=== PATIENT | male | born 1985 | race Caucasian/White ===

== ENCOUNTER 2016-12-04 13:19 | Emergency (ER) | payer OTHER ==
--- NOTE | 2016-12-04 15:47 | EDDOCDS ---
Nurse's Notes [facility] Name: Dayday Ferrera Age: 31 yrs Sex: Male : 1985 Arrival Date: 12/04/2016 Time: 13:19 Bed TR7 Private MD: Mathew [facility] Diagnosis: Lumbago with sciatica, right side Presentation: 12/04 13:39 Presenting complaint: Patient states: low back pain today. History of herniated disc kr3 low back. Adult Sepsis Screening: The patient does not have new or worsening altered mentation. Patient's respiratory rate is less than 22. Systolic blood pressure is greater than 100. Patient has a qSOFA score of 0- Negative Sepsis Screen. Suicide/Homicide risk assessment- the patient denies having any suicidal and/or homicidal ideations and does not present with any other emotional, behavioral or mental health complaints. 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 Transition of care: patient was not received from another setting of care. 13:39 Acuity: MISA Level 4 kr3 13:39 Method Of Arrival: Walkin/Carried/Asstd kr3 Triage Assessment: 13:40 General: Appears uncomfortable, Behavior is appropriate for age, cooperative. Pain: kr3 Location: low back area Pain currently is 8 out of 10 on a pain scale. HIV screening NA for this visit Offered previously. Neurological: Level of Consciousness is awake, alert. Respiratory: Respiratory effort is even, unlabored. Derm: Skin is normal. Historical: - Allergies: no known allergies; - Home Meds: 1. none - PMHx: back pain; - PSHx: none; - Social history: Smoking status: Patient states was never smoker of tobacco. No barriers to communication noted, The patient speaks fluent Khmer, Speaks appropriately for age. - Family history: Not pertinent. - : The pt / caregiver states he / she is not on anticoagulants. Home medication list is obtained from the patient. - Exposure Risk Screening:: None identified. Screenin:44 Screening information is obtained from the patient. Fall risk: No risks identified. kr3 Assistance ADL's: requires no assistance with activities of daily living. Abuse/DV Screen: The patient / caregiver reports he/she is: not in a situation that causes fear, pain or injury. Nutritional screening: No deficits noted. Advance Directives: Currently, there is no health care proxy. home support is adequate. Assessment: 15:45 Reassessment: Patient appears in no apparent distress at this time. Pain: Location: low kr3 back area Pain currently is 8 out of 10 on a pain scale. Respiratory: Respiratory effort is even, unlabored. Derm: Skin is normal. Vital Signs: 13:21 BP 138 / 65; Pulse 84; Resp 18; Temp 97.6(O); Pulse Ox 100% on R/A; Weight 97.52 kg ct3 (R); Height 70 in. (177.80 cm) (R); Pain 8/10; 15:44 BP 119 / 67; Pulse 73; Resp 16; Temp 97.9; Pulse Ox 99% on R/A; Pain 8/10; kr3 13:21 Body Mass Index 30.85 (97.52 kg, 177.80 cm) ct3 Vitals: 13:21 Log In Time: December 04, 2016 at 13:20. ct3 ED Course: 13:20 Patient visited by Aurora Ashby PCA. ct3 13:20 Patient moved to Waiting ct3 13:21 Carmona, [facility] is Private Physician. ct3 13:22 Patient moved to Pre RCE ct3 13:39 Triage Initiated kr3 15:02 Mary Ellen Jurado,RN is Primary Nurse. ar3 15:02 iLsa Suarez,TALYA is Primary Nurse. ar3 15:02 Patient moved to Triage 2 ar3 15:22 [facility] cc[facility] 15:22 Eugene Fonseca MD is Attending Physician. cc10 15:22 Patient visited by Landon Morris PA-C. cc10 15:22 Patient visited by Landon Morris PA-C. cc10 15:25 Carmona, [facility] is Referral Physician. cc10 15:31 Patient moved to TR7 ar3 15:45 The patient / caregiver is instructed regarding the plan of care and ED course. Patient kr3 has correct armband on for positive identification. 15:45 No IV's were initiated during this patient's visit. No procedures done that require kr3 assistance. Order Results: There are currently no results for this order. Outcome: 15:25 Discharge ordered by Provider. cc10 15:45 Discharge Assessment: patient administered narcotics - no. The following High Risk kr3 Discharge criteria are identified: None. Discharged to home ambulatory. Condition: stable. Discharge instructions given to patient, Instructed on discharge instructions, follow up and referral plans. medication usage, no driving heavy equipment, no drinking with medication, Demonstrated understanding of instructions, medications, Pt was receptive of discharge instructions/ teaching. Prescriptions given X 3. No special radiology studies were completed. Property sent home with patient. 15:46 Patient left the ED. kr3 Signatures: Lisa Suarez,RN RN kr3 Alva Clemente, EDITOR MANAGING NEWSPAPER EDITOR MANAGING NEWSPAPER ar3 Aurora Ashby, EDITOR MANAGING NEWSPAPER EDITOR MANAGING NEWSPAPER ct3 Landon Morris, PA-C PA-C cc10 MTDD
--- NOTE | 2016-12-04 15:47 | EDDOCDS ---
Physician Documentation [facility] Name: Dayday Ferrera Age: 31 yrs Sex: Male : 1985 Arrival Date: 12/04/2016 Time: 13:19 Bed TR7 Private MD: RENAE Carmona Disposition: 12/04/16 15:25 Discharged to Home/Self Care. Impression: Lumbago with sciatica, right side. - Condition is Stable. - Discharge Instructions: Sciatica. - Prescriptions for Diclofenac Sodium 75 mg Oral Tablet, Delayed Release (E.C.) - take 1 tablet by ORAL route 2 times per day; 30 tablet. Hydrocodone- Acetaminophen 5-325 mg Oral Tablet - take 1 tablet by ORAL route every 6 hours As needed MDD: 4 tabs; 16 tablet. Cyclobenzaprine 10 mg Oral Tablet - take 1 tablet by ORAL route 3 times per day As needed; 15 tablet. - Medication Reconciliation form. - Follow up: RENAE Carmona; When: Call to arrange an appointment; Reason: Wound/Symptom Recheck, Recheck today's complaints, Worsening of conditions, Continuance of care. - Problem is an acute exacerbation. - Symptoms are unchanged. Historical: - Allergies: no known allergies; - Home Meds: 1. none - PMHx: back pain; - PSHx: none; - Social history: Smoking status: Patient states was never smoker of tobacco. No barriers to communication noted, The patient speaks fluent Dominican, Speaks appropriately for age. - Family history: Not pertinent. - : The pt / caregiver states he / she is not on anticoagulants. Home medication list is obtained from the patient. - Exposure Risk Screening:: None identified. Vital Signs: 12/04 13:21 BP 138 / 65; Pulse 84; Resp 18; Temp 97.6(O); Pulse Ox 100% on R/A; Weight 97.52 kg / ct3 214.99 lbs (R); Height 70 in. (177.80 cm) (R); Pain 8/10; 15:44 BP 119 / 67; Pulse 73; Resp 16; Temp 97.9; Pulse Ox 99% on R/A; Pain 8/10; kr3 13:21 Body Mass Index 30.85 (97.52 kg, 177.80 cm) ct3 Signatures: Lisa SuarezRN RN kr3 Landon Morris, PA-C PA-C cc10 MTDD
--- NOTE | 2016-12-06 16:48 | EDDOCDS ---
Nurse's Notes [facility] Name: Dayday Ferrera Age: 31 yrs Sex: Male : 1985 Arrival Date: 12/04/2016 Time: 13:19 Bed TR7 Private MD: Mathe[place] [facility] Diagnosis: Lumbago with sciatica, right side Presentation: 12/04 13:39 Presenting complaint: Patient states: low back pain today. History of herniated disc kr3 low back. Adult Sepsis Screening: The patient does not have new or worsening altered mentation. Patient's respiratory rate is less than 22. Systolic blood pressure is greater than 100. Patient has a qSOFA score of 0- Negative Sepsis Screen. Suicide/Homicide risk assessment- the patient denies having any suicidal and/or homicidal ideations and does not present with any other emotional, behavioral or mental health complaints. 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 Transition of care: patient was not received from another setting of care. 13:39 Acuity: MISA Level 4 kr3 13:39 Method Of Arrival: Walkin/Carried/Asstd kr3 Triage Assessment: 13:40 General: Appears uncomfortable, Behavior is appropriate for age, cooperative. Pain: kr3 Location: low back area Pain currently is 8 out of 10 on a pain scale. HIV screening NA for this visit Offered previously. Neurological: Level of Consciousness is awake, alert. Respiratory: Respiratory effort is even, unlabored. Derm: Skin is normal. Historical: - Allergies: no known allergies; - Home Meds: 1. none - PMHx: back pain; - PSHx: none; - Social history: Smoking status: Patient states was never smoker of tobacco. No barriers to communication noted, The patient speaks fluent Kyrgyz, Speaks appropriately for age. - Family history: Not pertinent. - : The pt / caregiver states he / she is not on anticoagulants. Home medication list is obtained from the patient. - Exposure Risk Screening:: None identified. Screenin:44 Screening information is obtained from the patient. Fall risk: No risks identified. kr3 Assistance ADL's: requires no assistance with activities of daily living. Abuse/DV Screen: The patient / caregiver reports he/she is: not in a situation that causes fear, pain or injury. Nutritional screening: No deficits noted. Advance Directives: Currently, there is no health care proxy. home support is adequate. Assessment: 15:45 Reassessment: Patient appears in no apparent distress at this time. Pain: Location: low kr3 back area Pain currently is 8 out of 10 on a pain scale. Respiratory: Respiratory effort is even, unlabored. Derm: Skin is normal. Vital Signs: 13:21 BP 138 / 65; Pulse 84; Resp 18; Temp 97.6(O); Pulse Ox 100% on R/A; Weight 97.52 kg ct3 (R); Height 70 in. (177.80 cm) (R); Pain 8/10; 15:44 BP 119 / 67; Pulse 73; Resp 16; Temp 97.9; Pulse Ox 99% on R/A; Pain 8/10; kr3 13:21 Body Mass Index 30.85 (97.52 kg, 177.80 cm) ct3 Vitals: 13:21 Log In Time: December 04, 2016 at 13:20. ct3 ED Course: 13:20 Patient visited by Aruora Ashby PCA. ct3 13:20 Patient moved to Waiting ct3 13:21 [place] [facility] [place] Private Physician. ct3 13:22 Patient moved to Pre RCE ct3 13:39 Triage Initiated kr3 15:02 Mary Ellen Jurado,RN is Primary Nurse. ar3 15:02 Lisa Suarez,TALYA is Primary Nurse. ar3 15:02 Patient moved to Triage 2 ar3 15:22 Landon Morris [facility]-C [facility] cc10 15:22 Eugene Fonseca MD is Attending Physician. cc10 15:22 Patient visited by Landon Morris PA-C. cc10 15:22 Patient visited by Landon Morris PA-C. cc10 15:25 [place] [facility] is Referral Physician. cc10 15:31 Patient moved to TR7 ar3 15:45 The patient / caregiver is instructed regarding the plan of care and ED course. Patient kr3 has correct armband on for positive identification. 15:45 No IV's were initiated during this patient's visit. No procedures done that require kr3 assistance. 12/05 09:29 T-Sheet-- Draft Copy was scanned into [employer] and attached to record. gb Order Results: There are currently no results for this order. Outcome: 12/04 15:25 Discharge ordered by Provider. cc10 15:45 Discharge Assessment: patient administered narcotics - no. The following High Risk kr3 Discharge criteria are identified: None. Discharged to home ambulatory. Condition: stable. Discharge instructions given to patient, Instructed on discharge instructions, follow up and referral plans. medication usage, no driving heavy equipment, no drinking with medication, Demonstrated understanding of instructions, medications, Pt was receptive of discharge instructions/ teaching. Prescriptions given X 3. No special radiology studies were completed. Property sent home with patient. 15:46 Patient left the ED. kr3 Signatures: Mira Gross, Reg Reg gb Lisa Suarez,RN RN kr3 Alva Clemente, ON CAR SUPERVISOR ON CAR SUPERVISOR ar3 Aurora Ashby, ON CAR SUPERVISOR ON CAR SUPERVISOR ct3 Landon Morris, PARizwanaC PARizwanaC cc10 Chart Complete MTDD
--- NOTE | 2016-12-06 16:48 | EDDOCDS ---
Physician Documentation [facility] Name: Dayday Ferrera Age: 31 yrs Sex: Male : 1985 Arrival Date: 12/04/2016 Time: 13:19 Bed TR7 Private MD: RENAE Carmona Disposition: 12/04/16 15:25 Discharged to Home/Self Care. Impression: Lumbago with sciatica, right side. - Condition is Stable. - Discharge Instructions: Sciatica. - Prescriptions for Diclofenac Sodium 75 mg Oral Tablet, Delayed Release (E.C.) - take 1 tablet by ORAL route 2 times per day; 30 tablet. Hydrocodone- Acetaminophen 5-325 mg Oral Tablet - take 1 tablet by ORAL route every 6 hours As needed MDD: 4 tabs; 16 tablet. Cyclobenzaprine 10 mg Oral Tablet - take 1 tablet by ORAL route 3 times per day As needed; 15 tablet. - Medication Reconciliation form. - Follow up: RENAE Carmona; When: Call to arrange an appointment; Reason: Wound/Symptom Recheck, Recheck today's complaints, Worsening of conditions, Continuance of care. - Problem is an acute exacerbation. - Symptoms are unchanged. Historical: - Allergies: no known allergies; - Home Meds: 1. none - PMHx: back pain; - PSHx: none; - Social history: Smoking status: Patient states was never smoker of tobacco. No barriers to communication noted, The patient speaks fluent Algerian, Speaks appropriately for age. - Family history: Not pertinent. - : The pt / caregiver states he / she is not on anticoagulants. Home medication list is obtained from the patient. - Exposure Risk Screening:: None identified. Vital Signs: 12/04 13:21 BP 138 / 65; Pulse 84; Resp 18; Temp 97.6(O); Pulse Ox 100% on R/A; Weight 97.52 kg / ct3 214.99 lbs (R); Height 70 in. (177.80 cm) (R); Pain 8/10; 15:44 BP 119 / 67; Pulse 73; Resp 16; Temp 97.9; Pulse Ox 99% on R/A; Pain 8/10; kr3 13:21 Body Mass Index 30.85 (97.52 kg, 177.80 cm) ct3 MDM: 12/05 09:29 T-Sheet-- Draft Copy was scanned into [employer] and attached to record. gb Signatures: Mira Gross, Reg Reg gb Lisa SuarezRN RN kr3 Landon Morris, ARABELLAC PAPalmer cc10 The chart was reviewed and I authenticate all verbal orders and agree with the evaluation and treatment provided.Attachments: 09:29 T-Sheet-- Draft Copy gb Chart Complete MTDD
--- NOTE | 2016-12-06 16:48 | EDDOCDS ---
Physician Documentation [facility] Name: Dayday Ferrera Age: 31 yrs Sex: Male : 1985 Arrival Date: 12/04/2016 Time: 13:19 Bed TR7 Private MD: RENAE Carmona Disposition: 12/04/16 15:25 Discharged to Home/Self Care. Impression: Lumbago with sciatica, right side. - Condition is Stable. - Discharge Instructions: Sciatica. - Prescriptions for Diclofenac Sodium 75 mg Oral Tablet, Delayed Release (E.C.) - take 1 tablet by ORAL route 2 times per day; 30 tablet. Hydrocodone- Acetaminophen 5-325 mg Oral Tablet - take 1 tablet by ORAL route every 6 hours As needed MDD: 4 tabs; 16 tablet. Cyclobenzaprine 10 mg Oral Tablet - take 1 tablet by ORAL route 3 times per day As needed; 15 tablet. - Medication Reconciliation form. - Follow up: RENAE Carmona; When: Call to arrange an appointment; Reason: Wound/Symptom Recheck, Recheck today's complaints, Worsening of conditions, Continuance of care. - Problem is an acute exacerbation. - Symptoms are unchanged. Historical: - Allergies: no known allergies; - Home Meds: 1. none - PMHx: back pain; - PSHx: none; - Social history: Smoking status: Patient states was never smoker of tobacco. No barriers to communication noted, The patient speaks fluent Bahamian, Speaks appropriately for age. - Family history: Not pertinent. - : The pt / caregiver states he / she is not on anticoagulants. Home medication list is obtained from the patient. - Exposure Risk Screening:: None identified. Vital Signs: 12/04 13:21 BP 138 / 65; Pulse 84; Resp 18; Temp 97.6(O); Pulse Ox 100% on R/A; Weight 97.52 kg / ct3 214.99 lbs (R); Height 70 in. (177.80 cm) (R); Pain 8/10; 15:44 BP 119 / 67; Pulse 73; Resp 16; Temp 97.9; Pulse Ox 99% on R/A; Pain 8/10; kr3 13:21 Body Mass Index 30.85 (97.52 kg, 177.80 cm) ct3 MDM: 12/05 09:29 T-Sheet-- Draft Copy was scanned into [email or web address] and attached to record. gb Signatures: Mira Gross, Reg Reg gb Lisa SuarezRN RN kr3 aLndon Morris, ARABELLAC PAPalmer cc10 The chart was reviewed and I authenticate all verbal orders and agree with the evaluation and treatment provided.Attachments: 09:29 T-Sheet-- Draft Copy gb Chart Complete MTDD
== END 2016-12-04 15:46 | disposition home or self-care (01) ==
LOC: M ED 13:19
DX: M54.41 Lumbago with sciatica, right side (principal); M54.16 Radiculopathy, lumbar region

== ENCOUNTER 2017-02-23 08:55 | Emergency (ER) | payer OTHER ==
[~2017-02-23] VITALS: Ht 154.9 cm; Wt 104.3 kg
[2017-02-23 09:10] VITALS: BP 131/78
== END 2017-02-23 10:23 | disposition home or self-care (01) ==
LOC: M ED 09:57
DX: S60.455A Superficial foreign body of left ring finger, initial encounter (principal); W49.04XA Ring or other jewelry causing external constriction, initial encounter; Y92.89 Other specified places as the place of occurrence of the external cause; Y93.89 Activity, other specified; Y99.8 Other external cause status